=== PATIENT | male | born 1985 ===

== ENCOUNTER 2020-10-07 15:27 | Emergency (ER) | payer SELFPAY ==
[2020-10-07 15:35] VITALS: BP 136/85
[2020-10-07] MEDS ORDERED: IBUPROFEN 800 MG TAB PO STA (15:45)
[2020-10-07] MEDS ORDERED: TETRACAINE 0.5% OPHTH SOLN 4ML OU PRN (15:45)
[2020-10-07] MEDS ORDERED: ACETAMINOPHEN 500 MG TAB PO STA (15:45)
[2020-10-07] MEDS ORDERED: FLUORESCEIN 1 MG STRIP OP ONE (15:45)
--- NOTE | 2020-10-07 16:46 | Emergency Department Report ---
ED General Adult HPI - General Chief complaint: Eye Problems Stated complaint: METAL IN LT EYE Time Seen by Provider: 10/07/20 15:45 Source: patient Mode of arrival: Ambulatory Limitations: No Limitations - History of Present Illness Initial comments: 35-year-old male patient presents with complaints of left eye foreign body and pain x yesterday. He states while at work yesterday, he believes he got a piece of metal in his eye. He states he has sensitivity to light and rates his pain as a 7/10 in severity. Pain worsens with eye movement. He denies any vision changes. He is unsure of his last tetanus vaccination. -: Sudden Severity scale (0 -10): 10 - Related Data Previous Rx's Medication Instructions Recorded Last Taken Type Acetaminophen/Codeine [Tylenol 1 tab PO Q6H PRN #12 tab 10/07/20 Unknown Rx /Codeine # 3 tab] Erythromycin [Erythromycin Ophth 1 cm OU Q3H 7 Days #1 tube 10/07/20 Unknown Rx Oint] Ibuprofen [Motrin 800 MG tab] 800 mg PO Q8HR PRN #20 tablet 10/07/20 Unknown Rx Allergies Allergy/AdvReac Type Severity Reaction Status Date / Time No Known Allergies Allergy Unverified 10/07/20 15:30 ED Review of Systems ROS: Stated complaint: METAL IN LT EYE Other details as noted in HPI Constitutional: denies: malaise Eyes: eye pain. denies: eye discharge, vision change Skin: denies: rash Neurological: denies: headache ED Past Medical Hx - Past Medical History Previous Medical History?: No - Surgical History Past Surgical History?: No - Medications Home Medications: Home Medications Medication Instructions Recorded Confirmed Last Taken Type Acetaminophen/Codeine [Tylenol 1 tab PO Q6H PRN #12 tab 10/07/20 Unknown Rx /Codeine # 3 tab] Erythromycin [Erythromycin Ophth 1 cm OU Q3H 7 Days #1 tube 10/07/20 Unknown Rx Oint] Ibuprofen [Motrin 800 MG tab] 800 mg PO Q8HR PRN #20 tablet 10/07/20 Unknown Rx ED Physical Exam - General Limitations: No Limitations General appearance: alert, in no apparent distress - Head Head exam: Present: atraumatic - Eye Eye exam: Present: PERRL, EOMI, conjunctival injection (left). Absent: scleral icterus, periorbital swelling, periorbital tenderness Pupils: Present: other (Ortiz lamp exam performed-0.5 cm corneal abrasion noted at approximately 6:00 on left iris with central punctate foreign body-foreign body removed with [id number] everted and swept and no other foreign bodies noted) - Expanded Eye Exam Expanded Sclera/Conjunctival: Foreign Body: Left (tiny, ~6 o'clock on iris ) - Respiratory Respiratory exam: Absent: respiratory distress - Cardiovascular Cardiovascular Exam: Present: regular rate - Neurological Exam Neurological exam: Present: alert, oriented X3 - Psychiatric Psychiatric exam: Present: normal affect, normal mood - Skin Skin exam: Present: warm, dry, intact, normal color. Absent: rash ED Course Vital Signs 10/07/20 15:33 Temperature 98.9 F Pulse Rate 60 Respiratory 20 Rate Blood Pressure 136/85 [Right] O2 Sat by Pulse 100 Oximetry ED Medical Decision Making - Medical Decision Making 36-year-old female patient with history of bipolar disorder presents with complaints of bilateral hand pain x3 days. Patient states she believes she has infection in 2 her hands due to chewing on them regularly. She also reports that she has been off of her Abilify and her anxiety has been high and she has been banking her hands on tables. She denies any swelling to the hands, fever/chills/sweats, or difficulty moving her hands. No IV drug use per patient. She rates her current pain as a 5/10 in severity has not tried any OTC medication for symptoms. Small foreign body noted on iris at 6:00 with a corneal abrasion on Ortiz lamp exam. Foreign body was removed successfully with a Q-tip in ED eyelids were everted and swept and no further foreign bodies were noted. He denies contact lens wearing. Will treat corneal abrasion with erythromycin and pain medication. Patient to follow-up with ophthalmology first thing Saturday morning. He is well-appearing and his vitals are within normal limits he is stable for discharge home. Discussed signs and symptoms that should prompt immediate return to the emergency department in detail with patient who verbalizes understanding. Critical care attestation.: If time is entered above; I have spent that time in minutes in the direct care of this critically ill patient, excluding procedure time. ED Disposition Clinical Impression: Foreign body of left eye, Left cornea abrasion Disposition: TO HOME OR SELFCARE Is pt being admited?: No Condition: Stable Instructions: Corneal Abrasion, Eye Foreign Body Prescriptions: Erythromycin [Erythromycin Ophth Oint] 1 cm OU Q3H 7 Days #1 tube Ibuprofen [Motrin 800 MG tab] 800 mg PO Q8HR PRN #20 tablet PRN Reason: Pain, Moderate (4-6) Acetaminophen/Codeine [Tylenol /Codeine # 3 tab] 1 tab PO Q6H PRN #12 tab PRN Reason: Pain , Severe (7-10) Referrals: BK EVANS MD [Staff Physician] - 2-3 Days Forms: Work/School Release Form(ED) Print Language: RUSSIAN
[2020-10-07] MEDS ORDERED: TETANUS,DIPH,PERTUSS(ACELL) VACCINE 0.5 ML SYRINGE IM ONE (16:47)
== END 2020-10-07 17:22 | disposition home or self-care (01) ==
LOC: ED 15:27
DX: S05.02XA Injury of conjunctiva and corneal abrasion without foreign body, left eye, initial encounter (principal); T15.92XA Foreign body on external eye, part unspecified, left eye, initial encounter; Z79.899 Other long term (current) drug therapy; X58.XXXA Exposure to other specified factors, initial encounter; Y93.89 Activity, other specified; Y92.89 Other specified places as the place of occurrence of the external cause; Y99.8 Other external cause status
CPT/HCPCS: 90471; 90715; 99282